=== PATIENT | female | born 1965 | race Caucasian/White ===

== ENCOUNTER 2019-02-07 15:37 | Inpatient (IN) | payer OTHER ==
[~2019-02-07] VITALS: Ht 177.8 cm; Wt 104.3 kg
--- NOTE | 2019-02-07 16:00 | NUR ---
R L Q ABD PAIN X 3 DAYS
--- NOTE | 2019-02-07 16:02 | NUR ---
PATIENT A/OX4, BREATHING EVEN AND UNLABORED, NO SOB NOTED, NEEDS ATTENDED. KEPT COMFORTABLE, CHANGED INTO GOWN, ATTACHED TO THE [employer].
--- NOTE | 2019-02-07 16:10 | NUR ---
Rayna mosley in [facility] - 02/07/19 at 1610 by ZO URINE SAMPLE SENT TO LAB.
[2019-02-07 16:25] LABS: BASOPHILS # (AUTO) 0.1 /CMM (0.0-0.2); BASOPHILS % (AUTO) 0.5 % (0.0-2.0); EOSINOPHILS % (AUTO) 0.5 % (0.0-6.0); HEMATOCRIT 43 % (33-45); HEMOGLOBIN 14.5 g/dL (11.5-14.8); LYMPHOCYTES # (AUTO) 1.4 /CMM (0.8-4.8); MEAN CORPUSCULAR HGB CONC 34 g/dl (31.0-36.0); MEAN CORPUSCULAR VOLUME 94 fL (82-100); MONOCYTES # (AUTO) 1.1 /CMM (0.1-1.30); MONOCYTES % (AUTO) 7.7 % (2.0-12.0); NEUTROPHILS # (AUTO) 11.4 /CMM (1.8-8.9); NEUTROPHILS % (AUTO) 81.3 % (43.0-81.0); PLATELET COUNT (AUTO) 207 /CMM (150-450); RED BLOOD CELL COUNT(AUTO) 4.59 MIL/uL (4.0-5.2); WHITE BLOOD COUNT (AUTO) 14.1 K/uL (4.3-11.0)
[2019-02-07] MEDS ORDERED: ONDANSETRON HCL/PF - ER 4 MG/2 ML VIAL IV ONE (16:30)
[2019-02-07] MEDS ORDERED: KETOROLAC TROMETHAMINE INJ 30 MG/ML VIAL IV ONE ×2 (16:30→19:30)
[2019-02-07] MEDS ORDERED: MORPHINE SULFATE INJ 2 MG/ML DISP.SYRIN IV ONE ×2 (16:30→19:30)
[2019-02-07] MEDS ORDERED: IV NS 0.9% 1,000 ML BAG IV ONE (16:30)
[2019-02-07 16:33] LABS: CALCIUM, SERUM 9.6 mg/dL (8.5-10.1); CREATININE 0.9 mg/dL (0.6-1.3); POTASSIUM 3.8 mmol/L (3.5-5.1)
[2019-02-07] MEDS ORDERED: IOHEXOL-300 100 ML VIAL IV ONE (16:33)
[2019-02-07] MEDS ORDERED: IV NS 0.9% 250 ML IV ONE (16:33)
[2019-02-07] MEDS ORDERED: CT SWABBABLE VALVE TRANS SET 1 EA INFUS.SET MC ONE (16:33)
[2019-02-07] MEDS ORDERED: ONDANSETRON HCL/PF 4 MG/2 ML VIAL ONE (16:38)
[2019-02-07] MEDS ORDERED: MORPHINE SULFATE INJ 4 MG/ML DISP.SYRIN ONE ×2 (16:38→19:19)
[2019-02-07] MEDS ORDERED: KETOROLAC TROMETHAMINE 15 MG/ML VIAL ONE ×2 (16:38→19:19)
[2019-02-07 16:39] LABS: ALBUMIN 3.2 g/dL (3.4-5.0); BILIRUBIN,DIRECT 0.3 mg/dL (0.0-0.2); BILIRUBIN,TOTAL 0.9 mg/dL (0.2-1.0)
[2019-02-07 16:54] LABS: BILIRUBIN,URINE MODERATE (NEGATIVE); BLOOD, URINE Moderate Ery/uL (NEGATIVE); COLOR,URINE Yellow (YELLOW); KETONES,URINE 40 (NEGATIVE); LEUKOCYTE ESTERASE ,URINE Negative (NEGATIVE); NITRITE, URINE Negative (NEGATIVE); PH,URINE 6.5 (5.0-8.0); PROTEIN,URINE 100 mg/dl (NEGATIVE); UGLUCOSE Negative (NEGATIVE); UROBILINOGEN,URINE 0.2 EU/dL (0.2)
[2019-02-07 17:02] LABS: APPEARANCE,URINE SLIGHTLY CLOUDY (CLEAR)
[2019-02-07 17:03] LABS: BACTERIA,URINE Few /HPF (None Seen); SQUAMOUS EPITHELIAL CELL,UR Few /HPF (None Seen); WBC,URINE 0-2 /HPF (0-3)
[2019-02-07 17:04] LABS: URINE AMORPHOUS URATE Rare /HPF (None Seen)
--- NOTE | 2019-02-07 17:57 | NUR ---
MARCIA DIAZ [phone]
--- NOTE | 2019-02-07 19:16 | NUR ---
GOT VERBAL AUTH TO ADMIT PT. PER ADMITTING
--- NOTE | 2019-02-07 19:27 | NUR ---
endorsed to Chris MALDONADO
--- NOTE | 2019-02-07 19:40 | NUR ---
EPIC MANAGER OPERATIONS AND PROCUREMENT PAGED
--- NOTE | 2019-02-07 20:04 | NUR ---
RECIEVED BED 326-2MS
--- NOTE | 2019-02-07 20:12 | NUR ---
RECIEVED NEW BED 309-2MS
--- NOTE | 2019-02-07 20:23 | NUR ---
REPORT CALLED TO M/S ERICA JEAN BAPTISTE.
[2019-02-07 20:30] VITALS: BP 118/80
--- NOTE | 2019-02-07 20:30 | NUR ---
ADMISSION NOTE. PATIENT ARRIVED FROM ER ADMITTED TO 309 BED 2 WITH ACUTE APPENDICITIS. PT REPORTS SHE HAS HAD SHARP PAIN TO RLQ FOR LAST 3 DAYS BUT THIS AM THE PAIN GOT WORSE. PT SCHEDULED FOR [facility] TOMORROW AM AT 0730. PT REPORTS ABD PAIN IS MINOR AT THIS TIME RATED 2/10. PT IN NO APPARENT DISTRESS. DENIES SOB. ON RA RESP EVEN AND UNLABORED. DAUGHTER LORETO AT BEDSIDE. PT ORIENTED TO ROOM. QUESTIONS ADDRESSED. ADMISSION ASSESSMENT PERFORMED. BED DOWN LOCKED SRX2 ORIENTED TO USE OF CALL LIGHT VERBALIZED UNDERSTANDING TO CALL FOR ASSISTANCE NEEDED AWAITING NEW ORDERS FROM ADMITTING MD.
[2019-02-07] MEDS: IV D5/0.45 NACL 1,000 ML IV PRN (21:00)
[2019-02-07] MEDS ORDERED: MORPHINE SULFATE INJ 4 MG/ML DISP.SYRIN IV PRN (21:00)
[2019-02-07] MEDS ORDERED: ACETAMINOPHEN 325 MG TABLET PO PRN (21:00)
[2019-02-07] MEDS ORDERED: Z GUARD REMEDY 2 OZ OINT TP PRN (21:00)
[2019-02-07] MEDS ORDERED: MAG HYDROX/AL HYDROX/SIMETH 30 ML UDC PO PRN (21:00)
[2019-02-07] MEDS ORDERED: MAGNESIUM HYDROXIDE 30 ML UDC PO PRN (21:00)
[2019-02-07] MEDS ORDERED: ONDANSETRON HCL/PF 4 MG/2 ML VIAL IVP PRN (21:00)
[2019-02-07] MEDS ORDERED: ZOLPIDEM TARTRATE 5 MG TABLET PO PRN (21:00)
[2019-02-07] MEDS: MORPHINE SULFATE INJ 4 MG/ML DISP.SYRIN IV PRN (23:40)
[2019-02-08] VITALS: BP 112/75
[2019-02-08] MEDS: MORPHINE SULFATE INJ 4 MG/ML DISP.SYRIN IV PRN ×6 (02:29→22:20)
--- NOTE | 2019-02-08 03:17 | NUR ---
spoke with lab, they will need another urine specimen to do preg screen or recomeend to change test to serum blood. test changed to serum blood.
[2019-02-08] MEDS: IV D5/0.45 NACL 1,000 ML IV PRN (05:56)
[2019-02-08 06:00] VITALS: BP 123/72
[2019-02-08 06:51] LABS: BASOPHILS % (AUTO) 0.3 % (0.0-2.0); EOSINOPHILS % (AUTO) 1.3 % (0.0-6.0); HEMATOCRIT 38 % (33-45); HEMOGLOBIN 12.9 g/dL (11.5-14.8); LYMPHOCYTES # (AUTO) 1.4 /CMM (0.8-4.8); LYMPHOCYTES % (AUTO) 14.2 % (20.0-44.0); MEAN CORPUSCULAR HGB CONC 34 g/dl (31.0-36.0); MEAN CORPUSCULAR VOLUME 94 fL (82-100); MONOCYTES # (AUTO) 0.9 /CMM (0.1-1.30); MONOCYTES % (AUTO) 9.4 % (2.0-12.0); NEUTROPHILS # (AUTO) 7.2 /CMM (1.8-8.9); NEUTROPHILS % (AUTO) 74.8 % (43.0-81.0); PLATELET COUNT (AUTO) 197 /CMM (150-450); RED BLOOD CELL COUNT(AUTO) 4.08 MIL/uL (4.0-5.2); WHITE BLOOD COUNT (AUTO) 9.6 K/uL (4.3-11.0)
--- NOTE | 2019-02-08 07:05 | NUR ---
RN PM CLOSING NOTE. PATIENT IN BED IN NO APPARENT DISTRESS. REPORTS PAIN TO ABD NOW 04/28. RECENTLY MEDICATED WITH MORPHINE SULFATE 4MG. PATIENT TO GO TO OR SOON. OR CALLED STATE THEY WILL BE HERE SOON FOR PICKUP. PREOP CHECKLIST DONE. CONSENTS ARE SIGNED. PT DAUGHTER AT THE BEDSIDE. BED DOWN LOCKED. IVF INFUSING TO LEFT AC WITH NO S/S/ S OF INFILTRATION.
[2019-02-08] MEDS ORDERED: FENTANYL PF 100MCG/2ML AMPUL ONE (07:19)
[2019-02-08] MEDS ORDERED: MIDAZOLAM HCL 2 MG/2ML VIAL ONE (07:19)
[2019-02-08] MEDS ORDERED: ROCURONIUM BROMIDE 50 MG/5 ML ONE (07:20)
--- NOTE | 2019-02-08 07:35 | NUR ---
Patient picked up by OR staff for procedure. Patient awake alert and oriented x4.
[2019-02-08] MEDS ORDERED: BUPIVACAINE MPF W/EPI 0.25% 30 ML VIAL ONE (08:19)
[2019-02-08] MEDS ORDERED: METRONIDAZOLE 500MG/ NS 100ML 100 ML IV ONE (08:33)
[2019-02-08 09:50] VITALS: BP 119/75
--- NOTE | 2019-02-08 09:50 | NUR ---
Patient back from surgery. Awake and oriented x4. VS are stable , on rom air saturating above 95%.Denies pain at this moment. Patient noted with KEVIN drain on left lower abdomen with no derange at this moment. Safety precautions implemented.All post op orders noted and implemented
[2019-02-08] MEDS: METOCLOPRAMIDE HCL 10 MG/2 ML VIAL IV SCH ×3 (10:30→21:45)
--- NOTE | 2019-02-08 10:30 | NUR ---
Education for spirometer use provided : patient verbalized understanding.
--- NOTE | 2019-02-08 12:30 | NUR ---
patient tolerated clear liquid diet well
[2019-02-08] MEDS: METRONIDAZOLE 500MG/ NS 100ML 500 MG in PREMIX 1 EA IV SCH ×2 (12:52→20:28)
--- NOTE | 2019-02-08 14:10 | NUR ---
LAC IV access removed due to infiltration .
--- NOTE | 2019-02-08 14:20 | NUR ---
A new IV access to the left forearm g 22, flushing well.
[2019-02-08] MEDS: HYDROCODONE/APAP 5/325MG 1 EACH TABLET PO PRN (15:42)
[2019-02-08 16:00] VITALS: BP 139/79
[2019-02-08] MEDS: ANCEF 1 GM/50 ML D5W IV SCH ×2 (16:55)
--- NOTE | 2019-02-08 18:32 | NUR ---
Patient resting in bed, alert and oriented x4. VS are stable and within baseline, afebrile. Patient denies N/V and tolerated clear liquid well. Pain at tolerable level at this time. IV line intact and patent. KEVIN drainage in place with output 170ml bloody fluid.All needs attended. Patient kept comfortable and pain meds administrated as needed. Safety precautions observed, call light within reach. Will endorse to next shift for NOLAN
--- NOTE | 2019-02-08 19:00 | NUR ---
RN desrchucho opening notes Received Pt from morning nurse. Pt is alert and oriented X4. Respiration is normal. No SOB. No nausea or vomiting. Pt denies any pain or discomfort at this time. IV sites at LFA # 20 is clean, intact, patent and infusing well D5 1/2 NS at 125 m/hr. Abdominal dressing is clean, intact, dry and patent. Instructed to call. Safety precautions is maintained. Bed at low position, brakes locked, side rails upX3 and call light is within reach. Will continue to monitor.
[2019-02-08 20:00] VITALS: BP_SYST 109; BP_SYST 126; BP_DIAS 63; BP_DIAS 68
[2019-02-08 22:07] LABS: CALCIUM, SERUM 8.5 mg/dL (8.5-10.1); CREATININE 0.9 mg/dL (0.6-1.3); MAGNESIUM 2.5 mg/dL (1.8-2.4); PHOSPHORUS 2.6 mg/dL (2.5-4.9); POTASSIUM 3.8 mmol/L (3.5-5.1)
[2019-02-08 22:14] LABS: THYROID STIMULATING HORMONE 2.374 uIU/mL (0.358-3.74)
--- NOTE | 2019-02-08 22:20 | NUR ---
RN medsurg notes Pt is complaining of pain and requesting pain meds. Administered morphine sulfate inj 4mg/1 ml as ordered for pain on abdomen 10/29 per pt request. VS is stable. Safety precautions is maintained. Will continue to monitor.
[2019-02-09] MEDS: ANCEF 1 GM/50 ML D5W IV SCH ×6 (00:36→16:21)
[2019-02-09] MEDS: METOCLOPRAMIDE HCL 10 MG/2 ML VIAL IV SCH ×4 (04:09→22:01)
[2019-02-09] MEDS: METRONIDAZOLE 500MG/ NS 100ML 500 MG in PREMIX 1 EA IV SCH ×3 (04:12→22:01)
[2019-02-09] MEDS: MORPHINE SULFATE INJ 4 MG/ML DISP.SYRIN IV PRN ×3 (04:30→16:55)
[2019-02-09 06:24] LABS: BASOPHILS % (AUTO) 0.1 % (0.0-2.0); EOSINOPHILS % (AUTO) 0.2 % (0.0-6.0); HEMATOCRIT 35 % (33-45); HEMOGLOBIN 11.7 g/dL (11.5-14.8); LYMPHOCYTES # (AUTO) 1.1 /CMM (0.8-4.8); LYMPHOCYTES % (AUTO) 12.1 % (20.0-44.0); MEAN CORPUSCULAR HGB CONC 34 g/dl (31.0-36.0); MEAN CORPUSCULAR VOLUME 93 fL (82-100); MONOCYTES # (AUTO) 0.9 /CMM (0.1-1.30); MONOCYTES % (AUTO) 9.8 % (2.0-12.0); NEUTROPHILS # (AUTO) 7.3 /CMM (1.8-8.9); NEUTROPHILS % (AUTO) 77.8 % (43.0-81.0); PLATELET COUNT (AUTO) 227 /CMM (150-450); RED BLOOD CELL COUNT(AUTO) 3.72 MIL/uL (4.0-5.2); WHITE BLOOD COUNT (AUTO) 9.4 K/uL (4.3-11.0)
[2019-02-09 06:33] LABS: CALCIUM, SERUM 8.4 mg/dL (8.5-10.1); CREATININE 0.7 mg/dL (0.6-1.3); POTASSIUM 3.7 mmol/L (3.5-5.1)
--- NOTE | 2019-02-09 07:00 | NUR ---
Rn medsurg closing notes Pt is resting in bed comfortably. Respiration is normal. No SOB. No S/S of distress noted. VS is stable. IV sites at LFA # 20 is clean, intact, patent and SL. Routine meds were given as ordered. Kept Pt clean, dry and comfortable. Dressing on abdomen is clean, intact and patent with KEVIN drain emptied 20 ml. All needs met and attended. Safety precautions is maintained. Bed at low position, brakes locked, side rails upX3 and call light is within reach. Will endorse to morning nurse for NOLAN.
--- NOTE | 2019-02-09 07:45 | NUR ---
MS/RN Opening note Patient is resting in bed, A/O x4, showing no signs of acute distress, breathing is even and unlabored, saturating >95% on RA. Iv line LFA #20 is clean and intact s/l. Dressings on abdomen x3 are clean and intact. KEVIN drain noted with no output noted at this time. power and recovery shift engineer emptied 20ml. Bed is in lowest position, side rails x2 in upright position, call light is within reach and patient is aware of how to call for assistance when needed. Will continue with plan of care.
[2019-02-09 08:00] VITALS: BP 145/61
[2019-02-09] MEDS ORDERED: BISACODYL (5 MG) 5 MG TABLET.DR PO PRN (09:30)
--- NOTE | 2019-02-09 10:00 | NUR ---
MS/RN note Pharmacy made aware that eMAR schedule does not match the schedule on the [facility].
[2019-02-09] MEDS: DOCUSATE SODIUM 100 MG CAPSULE PO SCH ×3 (11:00→16:14)
--- NOTE | 2019-02-09 11:00 | NUR ---
MS/RN note Diet changed to full liquids per Dr. Green
[2019-02-09 16:00] VITALS: BP 117/71
--- NOTE | 2019-02-09 18:55 | NUR ---
MS/RN Closing note Patient is resting in bed, A/O x4, showing no signs of acute distress, breathing is even and unlabored, saturating >95% on RA. Iv line RFA #20 is clean and intact s/l. Dressings on abdomen x3 are clean and intact. KEVIN drain noted 20 ml output. All patient needs met, all due meds given, patient kept clean and dry throughout shift. Bed is in lowest position, side rails x2 in upright position, call light is within reach and patient is aware of how to call for assistance when needed. Will endorse to asphalt heater operator.
--- NOTE | 2019-02-09 19:30 | NUR ---
MS RN OPENING NOTES RECEIVED PATIENT FROM MORNING SHIFT, ALERT AND ORIENTED X 4. AMBULATORY, VERBALLY RESPONSIVE AND ABLE TO FOLLOW DIRECTIONS. BREATHING REGULAR AND UNLABORED ON ROOM AIR. RIGHT FOREARM G22 IV LINE INTACT AND PATENT, INFUSING WELL WITH NO BLEEDING OR S/S OF INFILTRATION/INFECTION NOTED. NO ACTIVE BLEEDING OR ANY DISCHARGES NOTED ON SURGICAL INCISION SITE. KEVIN DRAIN INTACT WITH SEROSANGUINEOUS OUTPUT IN SCANT AMOUNT. NO COMPLAINTS OF PAIN/DISCOMFORT REPORTED OF THE TIME. BED LOW AND LOCKED ON SEMI FOWLERS POSITION. CALL LIGHT IN REACH. WILL CONTINUE TO MONITOR.
[2019-02-09 20:00] VITALS: BP 118/76
[2019-02-09] MEDS: HYDROCODONE/APAP 5/325MG 1 EACH TABLET PO PRN (20:45)
--- NOTE | 2019-02-09 20:50 | NUR ---
MS RN NOTES COMPLAINED OF 7/10 LOWER ABDOMEN PAIN; NORCO 5/325 GIVEN BY MOUTH. VITAL SIGNS WNL. NON-PHARMACOLOGICAL INTERVENTIONS PROVIDED.
[2019-02-09 21:06] VITALS: BP 118/76
[2019-02-10] MEDS: ANCEF 1 GM/50 ML D5W IV SCH ×4 (00:17→08:49)
[2019-02-10] MEDS: IV D5/0.45 NACL 1,000 ML IV PRN ×2 (00:24→11:56)
[2019-02-10] MEDS: METOCLOPRAMIDE HCL 10 MG/2 ML VIAL IV SCH ×2 (04:27→10:29)
[2019-02-10] MEDS: METRONIDAZOLE 500MG/ NS 100ML 500 MG in PREMIX 1 EA IV SCH ×2 (04:27→12:43)
--- NOTE | 2019-02-10 05:50 | NUR ---
MS RN NOTES RIGHT FOREARM IV LINE INFILTRATED, NEW IV LINE REINSERTED ON LEFT FOREARM G22 WITH GOOD BLOOD BACKFLOW, FLUSHING WELL. WILL CONTINUE TO MONITOR.
[2019-02-10] MEDS: MORPHINE SULFATE INJ 4 MG/ML DISP.SYRIN IV PRN ×2 (06:01→10:29)
--- NOTE | 2019-02-10 06:10 | NUR ---
MS RN NOTES COMPLAINED OF 9/10 LOWER ABDOMINAL PAIN; MORPHINE 4MG GIVEN VIA IV PUSH. VITAL SIGNS WNL. NON-PHARMACOLOGICAL INTERVENTIONS PROVIDED.
--- NOTE | 2019-02-10 06:25 | NUR ---
MS RN CLOSING NOTES PATIENT IN BED, ALERT AND ORIENTED X 4. AMBULATORY, VERBALLY RESPONSIVE AND ABLE TO FOLLOW DIRECTIONS. BREATHING REGULAR AND UNLABORED ON ROOM AIR. LEFT FOREARM G22 IV LINE INTACT AND INFUSING WELL. NO ACTIVE BLEEDING OR ANY DISCHARGES NOTED ON SURGICAL INCISION SITE. KEVIN DRAIN INTACT WITH 20CC SEROSANGUINEOUS OUTPUT. COMPLAINED OF 4/10 ABDOMINAL PAIN, NON-PHARMACOLOGICAL INTERVENTIONS PROVIDED. ON IV ATB'S WITH NO ADVERSE REACTIONS OBSERVED. BED LOW AND LOCKED ON SEMI FOWLERS POSITION. CALL LIGHT IN REACH. WILL ENDORSE TO MORNING SHIFT FOR NOLAN.
[2019-02-10 07:17] LABS: BASOPHILS % (AUTO) 0.4 % (0.0-2.0); HEMATOCRIT 38 % (33-45); HEMOGLOBIN 12.5 g/dL (11.5-14.8); LYMPHOCYTES # (AUTO) 2.2 /CMM (0.8-4.8); LYMPHOCYTES % (AUTO) 23.9 % (20.0-44.0); MEAN CORPUSCULAR HGB CONC 33 g/dl (31.0-36.0); MEAN CORPUSCULAR VOLUME 94 fL (82-100); MONOCYTES # (AUTO) 0.9 /CMM (0.1-1.30); MONOCYTES % (AUTO) 10.4 % (2.0-12.0); NEUTROPHILS # (AUTO) 5.8 /CMM (1.8-8.9); NEUTROPHILS % (AUTO) 63.3 % (43.0-81.0); PLATELET COUNT (AUTO) 272 /CMM (150-450); RED BLOOD CELL COUNT(AUTO) 4.06 MIL/uL (4.0-5.2); WHITE BLOOD COUNT (AUTO) 9.1 K/uL (4.3-11.0)
[2019-02-10 08:00] VITALS: BP 108/60
[2019-02-10] MEDS: DOCUSATE SODIUM 100 MG CAPSULE PO SCH (08:51)
[2019-02-10] MEDS: HYDROCODONE/APAP 5/325MG 1 EACH TABLET PO PRN (08:52)
[2019-02-10] MEDS ORDERED: CIPR-262 PO (13:00)
[2019-02-10] MEDS ORDERED: HYDR-4384 PO (13:00)
[2019-02-10] MEDS ORDERED: METR500T PO (13:00)
--- NOTE | 2019-02-10 15:00 | NUR ---
MS RN CLOSING/DISCHARGE ALERT AND ORIENTEDX4. NO SOB. DENIES ANY C/O PAIN NOR DISCOMFORT. KEVIN DRAIN WITH 20 ML OUTPUT. KEVIN REMOVED BY DR.CATALAN CAMP WELL WITH PRESSURE DRESSING INTACT. SURGICAL INCISION SITE WITH SKIN INTACT NO S/S OF INFECTION TO SURGICAL SITE WITH RENÉE INTACT TO LEFT LOWER ABD AND SUTURE TO MID ABD (SUPERIOR SITE) AND S/P KEVIN SITE TO MID ABD (INFERIOR SITE). FOR DISCHARGE WITH DISCHARGE INSTRUCTION AND PACKET GIVEN TO PATIENT ALONG WITH EDUCATION PROVIDED. PATIENT VERBALIZES UNDERSTANDING. SCRIPT GIVEN IV ACCESS CATHETER REMOVED WITH CATHETER TIP INTACT WITH GAUZE DRESSING IN PLACE. ALL BELONGINGS ACCOUNTED FOR. PATIENT LEFT IN STABLE CONDITION ACCOMPANIED BY FAMILY.
== END 2019-02-10 15:00 | disposition home or self-care (01) | DRG 233 ==
LOC: ER 15:45 → MED 20:07
PROVIDERS: ADMIT Hospitalist; ATTEND Internal Medicine
PROC: 0DTJ4ZZ Resection of Appendix, Percutaneous Endoscopic Approach (ICD-10-PCS; principal; 2019-02-08)
DX: K35.33 Acute appendicitis with perforation, localized peritonitis, and gangrene, with abscess (principal); E44.1 Mild protein-calorie malnutrition; K76.0 Fatty (change of) liver, not elsewhere classified; J98.11 Atelectasis; Z98.890 Other specified postprocedural states; K57.90 Diverticulosis of intestine, part unspecified, without perforation or abscess without bleeding; K66.0 Peritoneal adhesions (postprocedural) (postinfection); Z87.891 Personal history of nicotine dependence; Z82.49 Family history of ischemic heart disease and other diseases of the circulatory system
CPT/HCPCS: 36415; 71045-TC; 80048-TC; 80076-TC; 81000-TC; 83690-TC; 83735-TC; 84100-TC; 84443-TC; 84702-TC; 85025-TC; 85610-TC; 85730-TC; 86850-TC; 87070-TC; 87075-TC; 87081-TC; 87186-TC; A4216; G0378; J0690; J1100; J1885; J2250; J2270; J2405; J2704; J2710; J2765; J3010; J3490; J7030; J7050; J7060; Q9967